=== PATIENT | male | born 1965 ===

== ENCOUNTER 2018-04-19 17:09 | Emergency (ER) | payer SELFPAY ==
--- NOTE | 2018-04-19 17:20 | C.PDOC ---
History Of Present Illness 52 y/o male brought to ER by S for public ETOH intoxication. Patient states that he was just sleeping. Patient denies having suicidal ideation, homicidal ideation, trauma, and other active physical complaints. of note, patient is well known to [facility] because he has visited the ER multiple times for ETOH intoxication. Time Seen by Provider: 04/19/18 17:12 Chief Complaint (Nursing): Substance Abuse History Per: Patient History/Exam Limitations: no limitations Past Medical History Reviewed: Historical Data, Nursing Documentation, Vital Signs - Medical History PMH: No Chronic Diseases Surgical History: No Surg Hx Family History: States: No Known Family Hx - Social History Hx Alcohol Use: Yes Hx Substance Use: No (DENIED) - Immunization History Hx Tetanus Toxoid Vaccination: No Hx Influenza Vaccination: No Hx Pneumococcal Vaccination: No Review Of Systems Except As Marked, All Systems Reviewed And Found Negative. Constitutional: Negative for: Fever, Chills Psych: Negative for: Suicidal ideation Physical Exam - Physical Exam Appears: No Acute Distress, Other (grossly drunk) Skin: Normal Color, Warm, Dry Head: Atraumatic, Normacephalic Eye(s): bilateral: Normal Inspection Oral Mucosa: Moist, Other (ETOH on breath) Cardiovascular: Rhythm Regular Respiratory: Normal Breath Sounds, No Rales, No Rhonchi, No Wheezing Neurological/Psych: Oriented x3, Normal Speech ED Course And Treatment Reevaluation Time: 21:47 Reassessment Condition: Improved (PT CLEAR SPEECH AND THOUGHT, STEADY GAIT. AO3, NO S/S ACUTE INTOX.) Disposition Counseled Patient/Family Regarding: Diagnosis, Need For Followup - Disposition Referrals: [facility] [Outside] [facility] [Outside] Disposition: HOME/ ROUTINE Disposition Time: 21:47 Condition: IMPROVED Forms: [facility] (Macedonian), General Discharge Instructions - Clinical Impression Clinical Impression: Alcohol abuse - Scribe Statement The provider has reviewed the documentation as recorded by the Vincent Cobian Provider Attestation: All medical record entries made by the Scribe were at my direction and personally dictated by me. I have reviewed the chart and agree that the record accurately reflects my personal performance of the history, physical exam, medical decision making, and the department course for this patient. I have also personally directed, reviewed, and agree with the discharge instructions and disposition.
[2018-04-19 17:22] VITALS: RESP 16
[2018-04-19 21:55] VITALS: BP 126/72; PULSE 100; TEMP 98.2; O2SAT 99
== END 2018-04-19 21:55 | disposition home or self-care (01) ==
LOC: C.ER 17:09
DX: F10.129 Alcohol abuse with intoxication, unspecified (principal)